=== PATIENT | female | born 1985 | race American Indian/Alaskan Native ===

== ENCOUNTER 2019-06-03 06:02 | Emergency (ER) | payer OTHER ==
--- NOTE | 2019-06-03 07:20 | XRay Report ---
RIGHT FOOT 3 VIEWS INDICATION: Stepped on needle and broke it.. COMPARISON: No relevant prior imaging study available. FINDINGS: There is a thin linear foreign body within the forefoot adjacent to the first MTP joint. No acute skeletal abnormality. 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 IMPRESSION: 1. Linear foreign body as above. Signer Name: Hudson Bennett MD Signed: 06/03/2019 7:15 AM Workstation Name: [id number]
[2019-06-03] MEDS ORDERED: TETANUS,DIPH,PERTUSS(ACELL) VACCINE 0.5 ML SYRINGE IM ONE (09:24)
--- NOTE | 2019-06-03 09:33 | Emergency Department Report ---
- General Chief complaint: Puncture Wound Stated complaint: R FOOT EDEMA Time Seen by Provider: 06/03/19 08:53 Source: patient Mode of arrival: Ambulatory Limitations: No Limitations - History of Present Illness Initial comments: This is a 33-year-old female nontoxic, well nourished in appearance, no acute signs of distress presents to the ED with c/o of right foot pain after stepping on a small carpet needle last week. Patient denies any pus or drainage. Patient denies any fever, chills, nausea, vomiting, chest pain, shortness of breath, headache or stiff neck. Patient denies any allergies or significant past medical history. MD complaint: foreign body -: week(s) (1) Tetanus Up to Date: no Location: R foot Severity: mild Severity scale (0 -10): 8 Quality: aching Consistency: constant Improves with: none Worsens with: none Context: none Associated symptoms: denies other symptoms Treatments Prior to Arrival: none - Related Data Previous Rx's Medication Instructions Recorded Last Taken Type Doxycycline Hyclate [Doxycycline 100 mg PO Q12HR #14 tab 06/03/19 Unknown Rx Hyclate TAB] Naproxen 500 mg PO Q8H PRN #20 tablet 06/03/19 Unknown Rx cephALEXin [Keflex] 500 mg PO Q12HR #14 cap 06/03/19 Unknown Rx Allergies Allergy/AdvReac Type Severity Reaction Status Date / Time No Known Allergies Allergy Verified 06/03/19 06:05 Abscess Boil HPI - HPI Chief Complaint: Puncture Wound Stated Complaint: R FOOT EDEMA Time Seen by Provider: 06/03/19 08:53 Home Medications: Previous Rx's Medication Instructions Recorded Last Taken Type Doxycycline Hyclate [Doxycycline 100 mg PO Q12HR #14 tab 06/03/19 Unknown Rx Hyclate TAB] Naproxen 500 mg PO Q8H PRN #20 tablet 06/03/19 Unknown Rx cephALEXin [Keflex] 500 mg PO Q12HR #14 cap 06/03/19 Unknown Rx Allergies/Adverse Reactions: Allergies Allergy/AdvReac Type Severity Reaction Status Date / Time No Known Allergies Allergy Verified 06/03/19 06:05 ED Review of Systems ROS: Stated complaint: R FOOT EDEMA Other details as noted in HPI Constitutional: denies: chills, fever Eyes: denies: eye pain, eye discharge, vision change ENT: denies: ear pain, throat pain Respiratory: denies: cough, shortness of breath, wheezing Cardiovascular: denies: chest pain, palpitations Endocrine: no symptoms reported Gastrointestinal: denies: abdominal pain, nausea, diarrhea Genitourinary: denies: urgency, dysuria, discharge Musculoskeletal: denies: back pain, joint swelling, arthralgia Skin: denies: rash, lesions Neurological: denies: headache, weakness, paresthesias Psychiatric: denies: anxiety, depression Hematological/Lymphatic: denies: easy bleeding, easy bruising ED Past Medical Hx - Past Medical History Previous Medical History?: No - Surgical History Past Surgical History?: Yes - Social History Smoking Status: Never Smoker Substance Use Type: None - Medications Home Medications: Home Medications Medication Instructions Recorded Confirmed Last Taken Type Doxycycline Hyclate [Doxycycline 100 mg PO Q12HR #14 tab 06/03/19 Unknown Rx Hyclate TAB] Naproxen 500 mg PO Q8H PRN #20 tablet 06/03/19 Unknown Rx cephALEXin [Keflex] 500 mg PO Q12HR #14 cap 06/03/19 Unknown Rx ED Physical Exam - General Limitations: No Limitations General appearance: alert, in no apparent distress - Head Head exam: Present: atraumatic, normocephalic - Neck Neck exam: Present: normal inspection, full ROM. Absent: tenderness, meningismus, lymphadenopathy - Extremities Exam Extremities exam: Present: normal inspection, full ROM, tenderness, normal capillary refill. Absent: joint swelling - Expanded Lower Extremity Exam Right Hip exam: Present: normal inspection, full ROM. Absent: tenderness, swelling Upper Leg exam: Present: normal inspection, full ROM. Absent: tenderness, swelling Knee exam: Present: normal inspection, full ROM. Absent: tenderness, swelling Lower Leg exam: Present: normal inspection, full ROM. Absent: tenderness, swelling Ankle exam: Present: normal inspection, full ROM. Absent: tenderness, swelling Foot/Toe exam: Present: normal inspection, full ROM, tenderness. Absent: swelling, abrasion, laceration, ecchymosis, deformity, crepidus, dislocation, erythema, amputation, puncture wound, foreign body, calcaneal tenderness, tenderness at base of 5th metatarsal, nail avulsion, subungual hematoma Neuro vascular tendon exam: Present: no vascular compromise Gait: Positive: observed and limited by pain 1 - pain here - Back Exam Back exam: Present: normal inspection, full ROM - Neurological Exam Neurological exam: Present: alert, oriented X3, normal gait - Psychiatric Psychiatric exam: Present: normal affect, normal mood - Skin Skin exam: Present: warm, dry, intact, normal color. Absent: rash ED Course Vital Signs 06/03/19 06/03/19 06:05 06:07 Temperature 98.0 F 98.0 F Pulse Rate 76 76 Respiratory 18 18 Rate Blood Pressure 119/83 119/82 O2 Sat by Pulse 97 97 Oximetry - Reevaluation(s) Reevaluation #1: 06/03/19 09:33 Patient is speaking in full sentences with no signs of distress noted. ED Medical Decision Making - Medical Decision Making This is a 33-year-old female that presents with right foot pain with foreign body. Patient is stable and was examined by me. X-rays obtained and dictated by radiologist. Patient is notified of the results with no questions noted by the patient. The area of the foot bone is currently closed. No signs of abscess. Patient received tetanus booster in the ER. Patient be discharged with Keflex and doxycycline. Patient was instructed that foreign body must be removed by a specialist and will give proper refills. Patient was instructed to Follow-up with a orthopedic doctor in 2 days or if symptoms worsen and continue return to emergency room as soon as possible. At time of discharge, the patient does not seem toxic or ill in appearance. No acute signs of distress noted. Patient agrees to discharge treatment plan of care. No further questions noted by the patient. Critical care attestation.: If time is entered above; I have spent that time in minutes in the direct care of this critically ill patient, excluding procedure time. ED Disposition Clinical Impression: Right foot pain Foreign body in right foot Qualifiers: Encounter type: initial encounter Qualified Code(s): S90.851A - Superficial foreign body, right foot, initial encounter Disposition: - TO HOME OR SELFCARE Is pt being admited?: No Does the pt Need Aspirin: No Condition: Stable Additional Instructions: Follow-up with a orthopedic doctor in 2 days or if symptoms worsen and continue return to emergency room as soon as possible. Your foreign body needs to be removed so it is important that you see the referral that you have been provided with. Prescriptions: Doxycycline Hyclate [Doxycycline Hyclate TAB] 100 mg PO Q12HR #14 tab cephALEXin [Keflex] 500 mg PO Q12HR #14 cap Naproxen 500 mg PO Q8H PRN #20 tablet PRN Reason: Pain , Severe (7-10) Referrals: PRIMARY CAREMD [Primary Care Provider] - 3-5 Days [facility] [Outside] - 3-5 Days AYSHA CAI MD [Staff Physician] - 06/05/19 Forms: Work/School Release Form(ED)
[2019-06-03 10:19] VITALS: BP 120/81
== END 2019-06-03 10:17 | disposition home or self-care (01) ==
LOC: ED 06:02
DX: S90.851A Superficial foreign body, right foot, initial encounter (principal); Z79.899 Other long term (current) drug therapy; W45.8XXA Other foreign body or object entering through skin, initial encounter; Y93.89 Activity, other specified; Y92.89 Other specified places as the place of occurrence of the external cause; Y99.8 Other external cause status
CPT/HCPCS: 90471; 90715